=== PATIENT | female | born 1965 | race African-American/Black ===

== ENCOUNTER 2018-10-28 18:50 | Inpatient (IN) | payer MEDICAID ==
[~2018-10-28] VITALS: Ht 165.1 cm; Wt 73.0 kg
[2018-10-28] MEDS ORDERED: MORPHINE SULFATE 4 MG/ML CPJ (NOT FOR IM USE) IV STA (19:23)
[2018-10-28] MEDS ORDERED: ONDANSETRON HCL 4MG/2ML INJ IV STA (19:23)
[2018-10-28] MEDS ORDERED: HYDRALAZINE 20MG/ML VIAL IV ONE ×2 (19:30→21:00)
[2018-10-28] MEDS ORDERED: AMLODIPINE 5MG TABLET PO ONE (19:30)
[2018-10-28 20:11] LABS: BASOPHILS % 0.4 % (0.0-2.0); EOSINOPHILS % 1.7 % (0.0-5.0); HEMATOCRIT. 36.4 % (36.0-48.0); HEMOGLOBIN. 12.6 g/dL (12.0-16.0); LYMPHOCYTES % 18.1 % (20.0-50.0); MEAN CORPUSCULAR HEMOGLOBIN 27.4 pg (28.0-32.0); MEAN PLATELET VOLUME 9.9 fl (7.4-10.4); MONOCYTES % 5.8 % (2.0-8.0); PLATELET 217 x1000/uL (130-400); RED CELL DISTRIBUTION WIDTH 16.5 % (11.6-14.6)
[2018-10-28 20:14] LABS: CHLORIDE 106 mEq/L (98-107)
[2018-10-28 20:17] LABS: *AMPHETAMINES SCREEN URINE NEGATIVE (NEGATIVE)
[2018-10-28 20:18] LABS: *BARBITURATES SCREEN URINE NEGATIVE (NEGATIVE); *BENZODIAZEPINES SCREEN URINE NEGATIVE (NEGATIVE); *COCAINE SCREEN URINE PRESUMTIVE POSITIVE (NEGATIVE)
[2018-10-28 20:18] LABS: ETHANOL BLOOD 81 mg/dL
[2018-10-28 20:19] LABS: METHADONE URINE SCREEN NEGATIVE (NEGATIVE); OPIATES URINE SCREEN NEGATIVE (NEGATIVE); PHENCYCLIDINE URINE SCREEN NEGATIVE (NEGATIVE)
[2018-10-28 20:20] LABS: CANNABINOID URINE SCREEN NEGATIVE (NEGATIVE)
[2018-10-28] MEDS ORDERED: LORAZEPAM 2MG/ML CPJ IV ONE (21:15)
[2018-10-28] MEDS ORDERED: LORAZEPAM 2MG/ML CPJ IV PRN (22:45)
[2018-10-28] MEDS ORDERED: DIPHENHYDRAMINE 50MG/ML VIAL IV PRN (22:45)
[2018-10-28] MEDS ORDERED: GUAIFENESIN 200MG/10ML SUGAR FREE UDC PO PRN (22:45)
[2018-10-28] MEDS ORDERED: MAGNESIUM HYDROXIDE 400MG/5ML 30ML UDC PO PRN (22:45)
[2018-10-28] MEDS ORDERED: MAGNESIUM/ALUMINUM HYDROXIDE/SIMETHICONE 30ML UDC PO PRN (22:45)
[2018-10-28] MEDS ORDERED: ACETAMINOPHEN 325MG TABLET PO PRN (22:45)
[2018-10-28] MEDS ORDERED: HYDRALAZINE 20MG/ML VIAL IV PRN (22:45)
[2018-10-28] MEDS ORDERED: ONDANSETRON HCL 4MG/2ML INJ IV PRN (22:45)
[2018-10-28] MEDS ORDERED: CLONIDINE 0.1MG TABLET PO PRN (22:45)
[2018-10-28 23:00] VITALS: BP_SYST 198; BP_DIAS 106; BP_DIAS 88
[2018-10-29 04:00] VITALS: BP 128/74
[2018-10-29] MEDS: SODIUM CHLORIDE 0.9% INJ 3ML FLUSH IVF SCH ×2 (07:06→14:13)
[2018-10-29 08:00] VITALS: BP 131/74
[2018-10-29 08:29] LABS: CHLORIDE 107 mEq/L (98-107)
[2018-10-29 08:46] LABS: CREATINE KINASE 70 IU/L (26-192)
[2018-10-29] MEDS ORDERED: AMLODIPINE 5MG TABLET PO SCH (09:00)
[2018-10-29] MEDS ORDERED: FAMOTIDINE 20MG TABLET PO SCH (09:00)
[2018-10-29] MEDS ORDERED: LISINOPRIL 10MG TABLET PO SCH (09:00)
[2018-10-29 12:00] VITALS: BP 145/78
[2018-10-29 16:12] VITALS: BP 152/72
[2018-10-29 16:21] VITALS: BP 152/72
== END 2018-10-29 18:05 | disposition home or self-care (01) | DRG 199 ==
LOC: ER 20:01 → 5WST 21:44 → EDBEDREQTM 21:49 → EDBEDREQ 21:49 → ENRESERV 22:03
PROVIDERS: ADMIT Internal Medicine; ATTEND Internal Medicine
DX: I10 Essential (primary) hypertension (principal); I67.4 Hypertensive encephalopathy; F14.10 Cocaine abuse, uncomplicated
CPT/HCPCS: 36415; 71045; 80048; 80305; 80320; 82550; 83880; 84484; 93005; 99285; J0360; J2060; J2270; J2405; G0480